=== PATIENT | male | born 1960 | race Caucasian/White ===

== ENCOUNTER 2016-10-09 17:55 | Emergency (ER) | payer BC, OTHER ==
[~2016-10-09] VITALS: Ht 177.8 cm; Wt 117.9 kg
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
[2016-10-09] MEDS ORDERED: NS IV 1000 ML 2,000 ML ONE (22:29)
[2016-10-09 22:45] VITALS: BP 0/0
[2016-10-09] MEDS ORDERED: CATHETER FLUSH 10 ML SYR IV ONE (23:00)
[2016-10-09] MEDS ORDERED: SODIUM BICARB 8.4% 50 MEQ/50 ML (ABBOTT) SYR INJ ONE (23:00)
[2016-10-09] MEDS ORDERED: ATROPINE INJECTION 1 MG/10 ML SYR (ABBOTT) INJ ONE (23:00)
[2016-10-09] MEDS ORDERED: EPINEPHrine 0.1 MG/ML 10 ML (HOSPIRA) SYR IV ONE (23:00)
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
== END 2016-10-09 22:46 | disposition expired ==
LOC: EDBD 17:56 → ER 17:56
DX: I46.9 Cardiac arrest, cause unspecified (principal); S20.212A Contusion of left front wall of thorax, initial encounter; S10.93XA Contusion of unspecified part of neck, initial encounter; W22.11XA Striking against or struck by driver side automobile airbag, initial encounter; V44.5XXA Car driver injured in collision with heavy transport vehicle or bus in traffic accident, initial encounter; Y92.410 Unspecified street and highway as the place of occurrence of the external cause; Y99.8 Other external cause status
CPT/HCPCS: 32551; 86920; 99291